=== PATIENT | female | born 1950 | race Caucasian/White ===

== ENCOUNTER 2019-02-28 08:40 | Inpatient (IN) | payer MEDICARE, OTHER ==
[~2019-02-28 08:40] MED LIST: CEFAZOLIN 2 Gram 2 GM/50 ML BAG IVPB ONE; CEFAZOLIN 2 Gram 2 GM/50 ML BAG IVPB SCH; CELECOXIB 100 MG CAPSULE PO ONE; FAMOTIDINE 20MG TABLET PO ONE; MECLIZINE 25 MG TABLET PO ONE; METOCLOPRAMIDE 10 MG TABLET PO ONE; VANCOMYCIN 1GM/200ML PREMIX 1 GM/200 ML PIGGYBACK IVPB ONE
[2019-02-28] MEDS ORDERED: RINGERS SOLUTION,LACTATED 1,000 ML IV ONE ×2 (09:35→11:32)
[2019-02-28 09:39] LABS: ABO GROUP A; ANTIBODY SCREEN NEGATIVE (NEGATIVE); RH TYPE POSITIVE
[2019-02-28] MEDS ORDERED: BUPIVACAINE 0.5% W/EPI MPF 30 ML VIAL SQ ONE (11:28)
[2019-02-28] MEDS ORDERED: KETOROLAC 30 MG/ML VIAL IVP PRN ×2 (12:36)
[2019-02-28] MEDS ORDERED: AL HYDROX/MAG HYDROX 30ML UD PO PRN (12:36)
[2019-02-28] MEDS ORDERED: NALOXONE 0.4 MG/1 ML VIAL IVP PRN (12:36)
[2019-02-28] MEDS ORDERED: DIPHENHYDRAMINE HCL 25 MG CAPSULE PO PRN (12:36)
[2019-02-28] MEDS ORDERED: ACETAMINOPHEN W/ CODEINE 300MG/60MG TABLET PO PRN ×2 (12:36)
[2019-02-28] MEDS ORDERED: TRAMADOL HCL 50 MG TABLET PO PRN (12:36)
[2019-02-28] MEDS ORDERED: ZOLPIDEM TARTRATE 5 MG TABLET PO PRN (12:36)
[2019-02-28] MEDS ORDERED: HYDROMORPHONE HCL 2 MG/ML VIAL IM PRN (12:36)
[2019-02-28] MEDS ORDERED: MAGNESIUM HYDROXIDE 30 ML UDC PO PRN (12:36)
[2019-02-28] MEDS ORDERED: ACETAMINOPHEN 325 MG TAB PO PRN (12:36)
[2019-02-28] MEDS ORDERED: ONDANSETRON HCL IV 4 MG/2 ML VIAL IVP PRN (12:36)
[2019-02-28] MEDS ORDERED: BISACODYL 10 MG SUPP RC PRN (12:36)
[2019-02-28] MEDS ORDERED: VANCOMYCIN 1GM/200ML PREMIX 1 GM/200 ML PIGGYBACK IVPB SCH (12:45)
[2019-02-28] MEDS ORDERED: MELATONIN 5 MG TABLET PO PRN (13:08)
[2019-02-28] MEDS ORDERED: 0.9 % SODIUM CHLORIDE 10 ML VIAL IVP ONE (14:00)
[2019-02-28] MEDS ORDERED: ROPIVACAINE HCL (NAROPIN) /PF 5MG/ML 20ML VIAL IV ONE (14:00)
[2019-02-28] MEDS ORDERED: DEXAMETHASONE 4 MG/ML 1ML VIAL IVP ONE (14:00)
[2019-02-28] MEDS: POTASSIUM CHLORIDE/D5-0.9%NACL 20 MEQ/1,000 ML BAG IV SCH ×3 (14:06→22:47)
[2019-02-28] MEDS: HYDROCODONE/APAP 10/325 TABLET PO PRN ×2 (14:41→20:13)
--- NOTE | 2019-02-28 15:55 | Rehab Evaluation ---
Patient Information - Patient Information Diagnosis: DJD R hip Ordered Treatment: PT Evaluate and Treat Status: Initial Evaluation Surgery: Yes (R THR) Date of Surgery: 02/28/19 Past Medical/Surgical Hx: PAST MEDICAL/SURGICAL HISTORY Past Surgical History CIRCLAGE X'S 4 HAD SPINALS C SCOPE PMH - Respiratory Hx Respiratory Disorders Yes Hx Bronchitis Yes: NOTHING RECENT Hx Pneumonia Yes: IN PAST PMH - Cardiovascular Hx Cardiovascular Disorders Yes Hx of Mitral Valve Prolapse Yes: NO PROBLEMS Exercise Tolerance Good Comment: LAP SWIMMER HYPERLIPIDEMIA PMH - Neuro Hx Neurological Disorders No PMH - GI Hx Gastrointestinal Disorders Yes Hx Weight Loss/Weight Gain Yes: 10 LB WT LOSS RECENTLY INTENTIONAL PMH - Hx Genitourinary Disorders No PMH - Endocrine Hx Endocrine Disorders No PMH - Musculoskeletal Hx Musculoskeletal Disorders Yes Hx Arthritis Yes: RIGHT HIP, SHOULDERS PMH - Psych Hx Psychiatric Problems Yes Hx Depression Yes: ON MEDS PMH - Hematology/Oncology Hx Hematology/Oncology No Disorders Hx Anemia Yes: 1976 Hx Blood Transfusion Reaction No Premorbid Status: Detail (The patient was independent with mobility prior to surgery.) Social History: Detail (The patient lives alone in a 2 story house with 2 stairs at the enterance and no handrails. The patient will be staying on the first floor. The bathroom is equipped with a walk in shower, grab bars and hand held shower, and elevated toilet seat. The patient has a front wheeled walker.) Precautions: [place], Fall, Other (WBAT, THR precautions.) - Time With Patient Total Time Spent With Patient (Min): 25 Treatment Procedures: Detail (Initial Evaluation Low complexity) Subjective Information - Subjective Information Per Patient (The patient has complaints of R hip pain level 5 using 0-10 pain scale.) Objective Data - Mental Status Patient Orientation: Oriented x3 - Visual Perception Appears within normal limits for therapeutic activities - ROM Not within normal limits (The patient's R hip is within THR precautions. All other AROM is WFL.) - Strength/Tone Not within normal limits (The patient's R LE strength was not tested s/p surgery however was functional. The patient's L LE strength was WFL.) - Bed Mobility Independent (The patient was independent with supine to sit following THR precautions.) - Transfers Independent (The patient was independent with with sit to and from stand transfer.) - Balance Balance Sitting: Good Balance Standing: Good - Sensation Intact - Gait Detail (The patient ambulated 30 feet x 1 with front wheeled walker with CG of one due to symptoms of lightheadedness. The patient was left in recliner with call light within reach.) Therapy Assessment - Therapy Assessment Detail (The patient was independent with bed mobility and transfers and required CG with ambulation due to lightheadedness. Feel the patient will progress well with mobility.) Patient Education - Patient Education Teaching Topic: Precautions (The patient was able to indentify all 3 THR precuations and follow them appropriately.) Response: Return Demonstration Teaching Method: Demonstration, Handout Teaching Recipient: Patient Barriers To Learning: None Problem List - Problem List Physical Therapy Problem List: Detail (1)Impaired ambulation secondary to s/p surgery 2) Decreased R LE strength) Goals - Goals Physical Therapy Goals: 1) The patient will ambulate with appropriate assistive device household sistances WBAT on the R independently. 2) The patient will ambulate on stairs with supervison for safety using proper technique. 3) The patient will be independent with TKA HEP Prognosis - Prognosis Good Plan - Plan Physical Therapy Plan: PT 1-2 sessions for gait training on levels and stairs and instruction in THR HEP
[2019-02-28] MEDS: CEFAZOLIN 2 Gram 2 GM/50 ML BAG IVPB SCH (20:02)
[2019-02-28] MEDS: DOCUSATE SODIUM 100 MG CAPSULE PO SCH (21:10)
[2019-03-01] MEDS: CEFAZOLIN 2 Gram 2 GM/50 ML BAG IVPB SCH ×3 (02:49→11:27)
[2019-03-01 06:34] LABS: HEMATOCRIT 27.3 % (35.0-47.0); HEMOGLOBIN 8.2 gm/dl (11.6-16.0)
[2019-03-01 06:47] LABS: BLOOD UREA NITROGEN 10 mg/dL (8-23); CREATININE 0.6 mg/dL (0.5-0.9); EST GLOMERULAR FILTRATION RATE > 60 mL/min; GLUCOSE,RANDOM 168 mg/dL (74-109)
[2019-03-01] MEDS: POTASSIUM CHLORIDE/D5-0.9%NACL 20 MEQ/1,000 ML BAG IV SCH ×2 (08:52→13:04)
--- NOTE | 2019-03-01 09:40 | Operative Note ---
DATE OF SURGERY: 02/28/2019 PREOPERATIVE DIAGNOSIS: End-stage arthrosis of the right hip. POSTOPERATIVE DIAGNOSIS: End-stage arthrosis of the right hip. OPERATION: Cementless right total hip arthroplasty using [employer] components with a size 50 no-hole Reflection cup, 32 mm diameter 35-degree offset highly crosslinked liner, a size 12 high-offset cementless [place] stem with a +0 32 mm diameter Oxinium head. STAFF SURGEON: Domenico French MD ANESTHESIA: Spinal. PREPARATION: Chloraprep. INDIVIDUAL CONSIDERATIONS: None. PROCEDURE: The patient was taken to the operating room, placed supine on the operating room table. She had a successful induction of spinal anesthetic. She was then placed on her side right side up, and her right leg and hip were prepped and draped in the usual fashion. The patient had direct posterior approach to the hip. Sharp dissection carried down through skin and subcutaneous tissues. Small veins were coagulated with a Bovie. The tensor gluteal fascia was opened along the entire length of the incision, and deep retractors were placed. Short external rotators were identified, piriformis fossa removed exposing the posterior capsule. Posterior capsulectomy was performed. Hip was dislocated posteriorly. She had advanced arthrosis with flattening of the head with no cartilage. A rim capsulectomy was performed. Femoral neck cut was made with an oscillating saw about a fingerbreadth above the lesser troc. Starting with a 43 mm reamer to get to the medial wall, I reamed to the introitus, which was a 49 for a 50 cup. I slightly under-reamed to 48. After thorough irrigation, I impacted a size 50 no-hole Reflection cup in 20 degrees of forward flexion and 40 degrees of abduction using the extraarticular alignment guide and bony landmarks. There was solid cementless fixation. A center cap screw was placed, and after irrigation, I was able to impact a 32 mm diameter 35-degree offset liner with the offset posteriorly and inferiorly. This gave an excellent stable acetabular construct, and this was packed off. The proximal femur was delivered into the wound, and box cutting osteotome was used to remove the proximal metaphyseal bone. Mid stem reaming was done to a 13 but I could only broach to a 12. It was too tight up top. I broached to a 12, dialed anteversion in to follow the natural anteversion angle between 25-30 degrees. After calcar reaming, with a +0 trial, there was excellent stability. I removed the trial, irrigated, and impacted a high-offset size 12 [place] stem with solid cementless fixation, solid calcar contact. I then after irrigation impacted +0 32 Oxinium head. I reduced the hip, had solid stability anteriorly with full stability in extension and external rotation. I flexed fully up to knee chest and internally rotated almost 40 degrees totally stable at 90 degrees of flexion, 90 degrees of internal rotation, full stability. Normal to shuck. Anything less would have been a little loose. The sciatic nerve was inspected and found to be completely intact. After irrigation, I placed 1 g of tranexamic acid mixed with 30 mL of saline deep to the fascia. The fascia was then closed with a running #2 quill, subcu was closed in layers with running 0 quill, skin was closed with imani. The skin was also infiltrated with 30 mL of 0.5% Marcaine with epinephrine. Sterile bulky compressive TORRES dressing was applied. The patient tolerated the procedure well. Needle and sponge counts were correct. Estimated blood loss was 300 mL. She was taken back to recovery in good condition. There were no complications. HARITHA
[2019-03-01] MEDS ORDERED: RIVAROXABAN 10 MG TABLET PO SCH (10:00)
[2019-03-01] MEDS ORDERED: ATORVASTATIN 20 MG TABLET PO SCH (10:00)
[2019-03-01] MEDS ORDERED: VENLAFAXINE ER 75 MG CAPSULE PO SCH (10:00)
[2019-03-01] MEDS ORDERED: FERROUS SULFATE 325 MG TAB PO SCH (10:00)
[2019-03-01] MEDS ORDERED: LORATADINE 10 MG TABLET PO SCH (10:00)
[2019-03-01] MEDS: HYDROCODONE/APAP 10/325 TABLET PO PRN ×2 (10:17→13:41)
[2019-03-01] MEDS: DOCUSATE SODIUM 100 MG CAPSULE PO SCH (10:17)
[2019-03-01] MEDS ORDERED: LIDOCAINE 2% MDV (20MG/ML) 20ML VIAL IV ONE (13:59)
[2019-03-01] MEDS ORDERED: PROPOFOL 10 MG/ML VIAL IV ONE (13:59)
[2019-03-01] MEDS ORDERED: KETAMINE HCL 100MG/1ML VIAL INJ ONE (13:59)
[2019-03-01] MEDS ORDERED: EPHEDRINE SULFATE 50 MG/ML ML IV ONE (13:59)
[2019-03-01] MEDS ORDERED: MIDAZOLAM HCL 2MG/2ML VIAL IV ONE (13:59)
--- NOTE | 2019-03-01 14:22 | Rehab Evaluation ---
Patient Information - Patient Information Diagnosis: DJD R hip Ordered Treatment: OT Evaluate and Treat Status: Initial Evaluation Surgery: Yes (R THR) Date of Surgery: 02/28/19 Past Medical/Surgical Hx: PAST MEDICAL/SURGICAL HISTORY Past Surgical History CIRCLAGE X'S 4 HAD SPINALS C SCOPE PMH - Respiratory Hx Respiratory Disorders Yes Hx Bronchitis Yes: NOTHING RECENT Hx Pneumonia Yes: IN PAST PMH - Cardiovascular Hx Cardiovascular Disorders Yes Hx of Mitral Valve Prolapse Yes: NO PROBLEMS Exercise Tolerance Good Comment: LAP SWIMMER HYPERLIPIDEMIA PMH - Neuro Hx Neurological Disorders No PMH - GI Hx Gastrointestinal Disorders Yes Hx Weight Loss/Weight Gain Yes: 10 LB WT LOSS RECENTLY INTENTIONAL PMH - Hx Genitourinary Disorders No PMH - Endocrine Hx Endocrine Disorders No PMH - Musculoskeletal Hx Musculoskeletal Disorders Yes Hx Arthritis Yes: RIGHT HIP, SHOULDERS PMH - Psych Hx Psychiatric Problems Yes Hx Depression Yes: ON MEDS PMH - Hematology/Oncology Hx Hematology/Oncology No Disorders Hx Anemia Yes: 1976 Hx Blood Transfusion Reaction No Premorbid Status: Detail (The patient was independent with all ADLs and mobility prior to surgery. The patient lives alone in a 2 story house with 2 stairs at the entrance and no handrails. The patient will be staying on the first floor. The bathroom is equipped with a walk in shower, grab bars and hand held shower. There is also an elevated toilet seat with grab bars. The patient has a standard walker and a 4 prong cane. Her cat's litter box is in the basement but she plans to have her private pay home care take care of this until she is either able negotiate stairs or will have them put the litter box on the main floor.) Precautions: [place], Fall, Other (WBAT, THR precautions.) - Time With Patient Total Time Spent With Patient (Min): 50 (1 eval, 2 ADL) Treatment Procedures: Detail (OT eval: low complexity) Subjective Information - Subjective Information Per Patient (Ok to see per KENNETH [place]. Pt agreeable to OT eval and Tx - motivated to return home.) Objective Data - Pain Pain Present: Yes (-03/29) - Mental Status Patient Orientation: Oriented x3 - Visual Perception Appears within normal limits for therapeutic activities - ROM Within normal limits - Strength/Tone Within normal limits - Coordination Appears within normal limits for therapeutic activities - Bed Mobility Independent (supine >< EOB) - Transfers Independent (initial supervision and verbal cueing for safe sit to stand from bed as Pt leaning forward without awareness of hip precautions, progressing to MOD I with standard walker.) - Balance Balance Sitting: Good Balance Standing: Good - Sensation Intact - Gait Detail (Functional ambulation within bedroom with FWW and supervision and MOD verbal instruction to remind Pt of hip prec. as Pt tends to twist R leg inward, progressing to MOD I with FWW.) - ADL's/IADL's Detail (Beginning of session Pt reports doctor told her no active abduction and extension R leg - OT educated Pt on no bending >90*, twisting, crossing. OT educated Pt on adaptive technique for LB dressing, toilet TF, car TF, and bathroom, kitchen, and laundry safety. Pt requires practice with LB dressing using AE with initial MOD verbal instructions for technique to avoid breaking hip prec progressing to MOD I with sock aide and industrial laborer. Pt demos and verbalizes understanding with home safety and precautions end of session. Purchased industrial laborer and long-handled shoe horn) Therapy Assessment - Therapy Assessment Detail (Pt demos safety and independence with all ADL and functional mobility with good awareness of hip precautions end of session. Recommend home DCP with private pay home care when medically ready.) Patient Education - Patient Education Teaching Topic: Equipment Use, Precautions Response: Return Demonstration, Verbalize Understanding Teaching Method: Discussion, Demonstration Teaching Recipient: Patient Barriers To Learning: None Problem List - Problem List Physical Therapy Problem List: Detail (1)Impaired ambulation secondary to s/p surgery 2) Decreased R LE strength) Occupational Therapy Problem List: Detail (No further IP OT needs identified.) Goals - Goals Physical Therapy Goals: 1) The patient will ambulate with appropriate assistive device household sistances WBAT on the R independently. 2) The patient will ambulate on stairs with supervison for safety using proper technique. 3) The patient will be independent with TKA HEP Occupational Therapy Goals: No further IP OT needs/goals identified. Prognosis - Prognosis Good Plan - Plan Physical Therapy Plan: PT 1-2 sessions for gait training on levels and stairs and instruction in THR HEP Occupational Therapy Plan: No further IP OT needs/goals identified. DC OT services. Thank you for this referral.
--- NOTE | 2019-03-01 15:46 | Physical Therapy Tx Note ---
Physical Therapy Tx Note - Treatment Note Tolerated: Good Total Time Spent With Patient: 30 Physical Therapy Tx Note: Detail (Pt was seated in a chair when PT arrived. Pt stated that she is feeling better today than she did yesterday reporting 3/10 pain. Pt ambulated 80ft with standard walker contact guard assist. Pt descended and ascended 3 steps contact guard. Pt was indenpendent with all transfers. PT reviewd HEP with Pt. Pt was left in chair with call light and with ice on her R hip.) Physical Therapy Problem List: Detail (1)Impaired ambulation secondary to s/p surgery 2) Decreased R LE strength) Physical Therapy Goals: 1) The patient will ambulate with appropriate assistive device household sistances WBAT on the R independently. 2) The patient will ambulate on stairs with supervison for safety using proper technique. 3) The patient will be independent with TKA HEP Prognosis: Good Physical Therapy Plan: PT 1-2 sessions for gait training on levels and stairs and instruction in THR HEP
--- NOTE | 2019-03-02 11:51 | Discharge Summary ---
DATE OF SURGERY: 02/28/2019 DATE OF ADMISSION: 02/28/2019 DATE OF DISCHARGE: 03/01/2019 HISTORY: The patient is a delightful 69-year-old female who presents with a profound end-stage arthrosis of her right hip. She was admitted after right total hip arthroplasty. Postoperatively she did well. Hospital course was unremarkable. The plan is to discharge her home in the care of her family. Home PT visiting nurse has been arranged. She will be given Moca for pain and Xarelto followed by aspirin for DVT prophylaxis. She will follow up in my office in 4 weeks. Visiting nurse will remove her sutures in 2 weeks. FINAL DIAGNOSIS: End-stage arthrosis of the right hip. SECONDARY DIAGNOSIS: Acute operative blood loss anemia. OPERATIONS AND PROCEDURES: Cementless right total hip arthroplasty. HARITHA
== END 2019-03-01 14:00 | disposition home health service (06) | DRG 470 ==
LOC: UNDOADMIN 08:40 → MEDSURG 08:40
PROVIDERS: ADMIT Orthopaedic Surgery; ATTEND Orthopaedic Surgery
PROC: 0SR906A Replacement of Right Hip Joint with Oxidized Zirconium on Polyethylene Synthetic Substitute, Uncemented, Open Approach (ICD-10-PCS; principal; 2019-02-28 10:30)
DX: M16.11 Unilateral primary osteoarthritis, right hip (principal); E78.00 Pure hypercholesterolemia, unspecified; E03.9 Hypothyroidism, unspecified
CPT/HCPCS: 80048; 85014; 85018; 86850; 86900; 86901; 97110; 97535; C1776; J1885; J3370; J3480; J3490; J7120